=== PATIENT | male | born 1980 | race Hispanic/Latino ===

== ENCOUNTER 2016-12-02 18:09 | Inpatient (IN) | payer MEDICAID ==
[2016-12-02 19:10] LABS: BASO % 0.6 % (0.0-2.0); EOS # 0.3 K/uL (0.0-0.7); HEMATOCRIT 49.5 % (35.0-51.0); LYMPH # 1.8 K/uL (1.0-4.3); LYMPH % 25.4 % (20.0-40.0); MEAN CELL VOLUME 93.9 fL (80.0-94.0); MEAN CORPUSCULAR HEMOGLOBIN 31.6 pg (27.0-31.0); MEAN CORPUSCULAR HGB CONC 33.7 g/dL (33.0-37.0); MEAN PLATELET VOLUME 7.6 fL (7.2-11.7); MONO # 0.8 K/uL (0.0-0.8); WHITE BLOOD COUNT 6.9 K/uL (4.8-10.8)
[2016-12-02 19:19] LABS: RBC URINE < 1 /hpf (0-3); URINE BILIRUBIN NEGATIVE (NEGATIVE); URINE BLOOD NEGATIVE (NEGATIVE); URINE COLOR Yellow (YELLOW); URINE GLUCOSE (UA) NORMAL (Normal); URINE KETONE NEGATIVE (NEGATIVE); URINE LEUKOCYTE ESTERASE NEG Leu/uL (Negative); URINE PROTEIN NEGATIVE (NEGATIVE); WBC URINE 1 /hpf (0-5)
[2016-12-02 19:24] LABS: CHLORIDE 104 mmol/L (98-107); SODIUM 144 mmol/L (132-148)
[2016-12-02 19:25] LABS: POTASSIUM 3.7 mmol/L (3.6-5.2)
[2016-12-02 19:26] LABS: GFR AFRICAN-AMERICAN > 60
[2016-12-02 19:27] LABS: ALB/GLOB RATIO 1.5 (1.0-2.1); ALKALINE PHOSPHATASE 46 U/L (38-126); ALT/SGPT 115 U/L (21-72); AST/SGOT 100 U/L (17-59); BILIRUBIN,TOTAL 0.6 mg/dL (0.2-1.3); BLOOD UREA NITROGEN 7 mg/dL (9-20); CALCIUM 10.1 mg/dl (8.6-10.4); CARBON DIOXIDE 28 mmol/L (22-30); GLUCOSE,RANDOM 76 mg/dL (75-110); TOTAL PROTEIN 7.1 g/dL (6.3-8.3)
[2016-12-02 19:28] LABS: ALCOHOL SERUM 267 mg/dl (0-10)
--- NOTE | 2016-12-02 19:34 | C.PDOC ---
Time Seen by Provider: 12/02/16 19:31 Chief Complaint (Nursing): Substance Abuse Past Medical History Vital Signs: Last Vital Signs Temp 98.1 F 12/02/16 18:20 Pulse 60 12/02/16 18:20 Resp 18 12/02/16 18:20 BP 132/87 12/02/16 18:20 Pulse Ox 100 12/02/16 18:20 - Social History Hx Alcohol Use: Yes Hx Substance Use: No - Immunization History Hx Tetanus Toxoid Vaccination: Yes Hx Influenza Vaccination: No Hx Pneumococcal Vaccination: No ED Course And Treatment - Laboratory Results Result Diagrams: 12/02/16 19:06 12/02/16 19:06 O2 Sat by Pulse Oximetry: 100 Disposition Counseled Patient/Family Regarding: Studies Performed, Diagnosis - Disposition Disposition Time: 19:34 Forms: [employer] (Macedonian)
--- NOTE | 2016-12-02 19:36 | C.PDOC ---
History Of Present Illness Pt presents to the ED requesting detoxification. He reports last alcoholic drink was a couple hours ago. Patient currently offers no medical complaints. Time Seen by Provider: 12/02/16 19:31 Chief Complaint (Nursing): Substance Abuse History Per: Patient History/Exam Limitations: intoxication Onset/Duration Of Symptoms: Hrs Current Symptoms Are (Timing): Still Present Suicide/Self Injury Attempted (Context): None Modifying Factor(s): Alcohol Severity: Mild Pain Scale Rating Of: 3 Associated Symptoms: denies: Suicidal Thoughts, Suicidal Plan Involuntary Hold By: None Recent travel outside of the [place]: No Additional History Per: Patient Past Medical History Reviewed: Historical Data, Nursing Documentation, Vital Signs Vital Signs: Last Vital Signs Temp 98.1 F 12/02/16 18:20 Pulse 103 H 12/02/16 21:35 Resp 18 12/02/16 21:35 BP 137/89 12/02/16 21:35 Pulse Ox 100 12/02/16 23:25 - Medical History PMH: No Chronic Diseases Surgical History: No Surg Hx Family History: States: No Known Family Hx - Social History Hx Alcohol Use: Yes Hx Substance Use: No - Immunization History Hx Tetanus Toxoid Vaccination: Yes Hx Influenza Vaccination: No Hx Pneumococcal Vaccination: No Review Of Systems Constitutional: Negative for: Fever, Chills Cardiovascular: Negative for: Chest Pain Respiratory: Negative for: Shortness of Breath Gastrointestinal: Negative for: Nausea, Vomiting, Abdominal Pain Psych: Positive for: Other (EtOH intoxication) Physical Exam - Physical Exam Appears: Non-toxic, No Acute Distress, Other (visibly intoxicated) Skin: Warm, Dry, Other (3x piercings noted on right cheek) Head: Normacephalic Eye(s): bilateral: Normal Inspection, PERRL, EOMI Oral Mucosa: Moist, Other (alcohol on breath) Neck: Supple Chest: Symmetrical Cardiovascular: Rhythm Regular Respiratory: No Decreased Breath Sounds, No Accessory Muscle Use Gastrointestinal/Abdominal: Bowel Sounds, Soft, No Tenderness Back: No CVA Tenderness Extremity: No Deformity, No Swelling Extremity: Bilateral: Atraumatic Neurological/Psych: Oriented x3, Other (arousable to verbal stimuli) Gait: Unsteady ED Course And Treatment - Laboratory Results Result Diagrams: 12/02/16 19:06 12/02/16 19:06 O2 Sat by Pulse Oximetry: 100 (RA) Pulse Ox Interpretation: Normal ED OBSERVATION Date of observation admission: 12/02/16 Time of observation admission: 19:33 - Observation admission statement Patient is being placed in observation because:: Patient acutely intoxicated - Goals of Observation Goals of observation are:: Pending crisis evaluation - Progress Note Progress Note: 12/02/16 19:39 Pt in room, vitals stable. 12/02/16 21:28 Vitals stable. 12/02/16 23:25 Vitals stable. Disposition Discussed With Dr.: Staci Buitrago Comment: accepted the pt on his service and took over the care at 12:34 AM Doctor Will See Patient In The: Hospital - Disposition Disposition: HOSPITALIZED Disposition Time: 19:34 Condition: FAIR - POA Present On Arrival: None - Clinical Impression Clinical Impression: Drug abuse, Alcohol intoxication - Scribe Statement The provider has reviewed the documentation as recorded by the Vilma Lopez Provider Attestation: All medical record entries made by the Vilma were at my direction and personally dictated by me. I have reviewed the chart and agree that the record accurately reflects my personal performance of the history, physical exam, medical decision making, and the department course for this patient. I have also personally directed, reviewed, and agree with the discharge instructions and disposition. Decision To Admit - Pt Status Changed To: Hospital Disposition Of: Inpatient - Admit Certification Admit to Inpatient:: After my assessment, the patient will require hospitalization for at least two midnights. This is because of the severity of symptoms shown, intensity of services needed, and/or the medical risk in this patient being treated as an outpatient. - InPatient: Physician Admission Certification: I certify that this patient requires 2 or more midnights of care for the following reason:: After my assessment, the patient will require hospitalization for at least two midnights. This is because of the severity of symptoms shown, intensity of services needed, and/or the medical risk in this patient being treated as an outpatient. - . Bed Request Type: Detox Admitting Physician: Staci Buitrago Patient Diagnosis: Drug abuse, Alcohol intoxication
--- NOTE | 2016-12-03 01:22 | PCM.BM ---
<Kaitlin Langford M - Last Filed: 12/03/16 01:20> Treatment Plan Problems - Problems identified on initial assessmt Ineffective Coping Skills Date Initiated: 12/03/16 Time Initiated: 01:21 Assessment reference: NA Status: Active Treatment assets and liabiliti Patient Assests: ADL independent Patient Liabilities: substance abuse - Milieu Protocol Maintain good personal hygiene: daily Encourage regular showers, daily Remind patient to perform daily oral care, other Assist patient to perform ADL's Maintain personal safety: every shift Educate patient to report safety concerns to staff, every shift Monitor environment for contraband/sharps Medication safety: Monitor for expected outcome, potential side effects: every shift, Assess barriers to learning: every shift, Assess readiness for medication education: every shift <Abbe Vail - Last Filed: 12/04/16 10:46> - Diagnosis (1) Alcohol use disorder, severe, dependence Status: Acute Interventions: 12/04/16 10:46 * Assess 7x/week regarding severity of withdrawal * Educate regarding risks, benefits, side effects and alternatives of medications * Use Motivational Interviewing for abstinence * Use CBT for relapse prevention * Medication management for withdrawal symptoms * Encourage medication assisted treatment *
[2016-12-03] MEDS: Multiple Vitamins Tab PO SCH (10:58)
--- NOTE | 2016-12-03 15:13 | PCM.PSYCH ---
Initial Psychiatric Evaluation - Initial Psychiatric Evaluation Type of Admission: Voluntary Legal Status: Capacity Chief Complaint (in patient's own words): "I've had enough of drinking" History of Present Illness and Precipitating Events: Patient is a 36 year old male, single with a 9 year old child, who works in [employer], and lives alone in [place], [place]. Patient is here today because he states "I've had enough of drinking." Patient reports drinking up to 2 liters per day of liquor per day, in addition to some wine, for the past 4-5 years. His first time ever drinking was at age 16. Longest period of sobriety was for 2 years, but drinking was replaced with using drugs. Denies history of seizure or DTs. Patient reports occasionally sniffing cocaine, including recent use. He states that he used opioids for 2 years when he stopped drinking alcohol, but has been clean from opioids for 18 months. He denies use of PCP, LSD, mushrooms or other substances. He smokes cigarettes. Patient has a history of detox 1x in the past. He last went to rehab 2 years ago. He states that he has had naltrexone in the past. Patient has a past psychiatric history of anxiety, depression and bipolar. His periods of depression last for 2-3 days at a time. He states that he sometimes feel hyperactive. He has never been hospitalized for any psychiatric reason. He denies auditory/visual hallucinations, manic symptoms (high energy, elevated mood, goal directed behavior) or history of suicide attempts. Patient states that he used to cut himself "back in the day." He is currently on Welbutrin, Seroquel and Klonopin. He states that the Klonopin was prescribed to him by a "doctor at [facility]." Medical history: Hepatitis C otherwise denies Medications: Wellbutrin Seroquel Klonopin Family history: unsure Social history: Single 9 year old child Works in [employer] Lives alone in [place], [place] Currently on probation Current Medications: Active Medications Generic Name Dose Route Start Last Admin Trade Name Freq PRN Reason Stop Dose Admin Clonidine HCl 0.1 mg 12/03/16 01:32 12/03/16 12:47 Catapres PO 0.1 mg Q4H PRN Administration Symptoms of alcohol withdrawl Folic Acid 1 mg 12/03/16 10:00 12/03/16 10:58 Folic Acid PO 1 mg DAILY SHAGUFTA Administration Gabapentin 300 mg 12/03/16 14:00 12/03/16 13:07 Neurontin PO 300 mg TID SHAGUFTA Administration Hydroxyzine HCl 25 mg 12/03/16 01:39 12/03/16 02:12 Atarax PO 25 mg Q6H PRN Administration Agitation Ibuprofen 600 mg 12/03/16 11:21 Motrin Tab PO Q6H PRN Pain, moderate (4-7) Lorazepam 1 mg 12/03/16 11:19 12/03/16 12:47 Ativan PO 1 mg Q4H PRN Administration Anxiety Lorazepam 2 mg 12/03/16 11:30 12/03/16 11:43 Ativan PO 12/07/16 11:29 2 mg Q6H SHAGUFTA Administration Taper Multivitamins 1 tab 12/03/16 10:00 12/03/16 10:58 Hexavitamin PO 1 tab DAILY SHAGUFTA Administration Nicotine 1 patch 12/03/16 11:30 12/03/16 11:43 Nicoderm Cq TD 1 patch DAILY SHAGUFTA Administration Thiamine HCl 100 mg 12/03/16 10:00 12/03/16 10:58 Vitamin B1 Tab PO 100 mg DAILY SHAGUFTA Administration Trazodone HCl 50 mg 12/03/16 01:31 12/03/16 02:12 Desyrel PO 50 mg HS PRN Administration Insomnia Past Psychiatric History - Past Psychiatric History Pertinent Medical Hx (Current Medical&Sleep Prob, Allergies): Allergies Allergy/AdvReac Type Severity Reaction Status Date / Time No Known Allergies Allergy Verified 12/02/16 18:23 Clonazepam [Klonopin] 1 mg PO HS 12/02/16 QUEtiapine [SEROquel] 100 mg PO HS 12/02/16 buPROPion SR [Wellbutrin SR 150 MG] 150 mg PO BID 12/02/16 Review of Systems - Neurological Neurological: UNREMARKABLE - Psychiatric Psychiatric: Anxiety, Depression. absent: Auditory Hallucinations, Homicidal Ideation, Suicidal Ideation, Visual Hallucinations Mental Status Examination - Personal Presentation Personal Presentation: Looks stated age - Affect Affect: Constricted - Motor Activity Motor Activity: Calm - Reliability in Providing Information Reliability in Providing Information: Fair - Speech Speech: Organized - Mood Mood: Depressed, Anxious - Formal Thought Process Formal Thought Process: No Impairment - Cognitive Functions Orientation: Person, Place, Situation, Time Sensorium: Alert Attention/Concentration: Attentive Abstract Thinking: [place] Estimate of Intelligence: Average Judgement: Intact, as evidence by: Insight regarding need for hospitalization Memory: Recent intact, as evidence by: Ability to recall events of the day, Remote intact, as evidenced by: Abilit to recall sig. life events - Risk Risk: Withdrawal - Strength & Assets Inventory Strength & Assets Inventory: Employment status, Cooperative DSM 5 DX - DSM 5 DSM 5 Diagnosis: Alcohol use disorder, severe Alcohol withdrawal Cocaine use disorder Tobacco use disorder Anxiety disorder r/o major depressive disorder r/o bipolar disorder - Recommended/Plan of Treatment Treatment Recommendations and Plan of Treatment: Ativan detox As needed medications Gabapentin for augmentation Attend groups and activities Supportive therapy and psychoeduation [place] for abstinence CBT for relapse prevention Encourage MAT Refer to rehab or IOP Attend self-help groups as well Anxiety disorder -Continue medications -Support and psychoeducation daily -Attend groups and activities daily -After care planning by CECILLE Tobacco use disorder - Nicoderm 1 patch TD daily 33 minutes Projected ELOS: 4-5 days Prognosis: good with treatment Discharge Plan and Discharge Criteria: no withdrawal symptoms - Smoking Cessation Smoking Cessation Initiated: Yes
[2016-12-04] MEDS: Multiple Vitamins Tab PO SCH (09:35)
--- NOTE | 2016-12-04 11:20 | PCM.PYCHPN ---
Psychiatric Progress Note - Psychiatric Progress Note Patient seen today, length of contact: 15 min Patient Chief Complaint: I am feeling anxious.' Problems Identified/Issues Discussed: Patient seen and evaluated, chart reviewed and discussed with the nurse. Patient remained isolated, and withdrawn. Patient reports withdrawal symptoms including nausea, headaches, cramps and sweating. He reports anxiety and irritability however, he denies any suicidal ideation or any homicidal ideation or any AVH. He states that he was taking Seroquel and Wellbutrin before coming to the detox and he would like to resume these meds. Supportive therapy and psychoeducation were given. Medication Change: Yes (detox changes, start seroquel, start wellbutrin) Medical Record Reviewed: Yes Mental Status Examination - Cognitive Function Orientation: Person, Place, Situation, Time Memory: Intact Attention: WNL Concentration: Poor Association: WNL Fund of Knowledge: Poor - Mood Mood: Depressed, Anxious - Affect Affect: Constricted - Speech Speech: Soft - Formal Thought Process Formal Thought Process: No Impairment - Suicidal Ideation Suicidal Ideation: No - Homicidal Ideation Homicidal Ideation: No Goal/Treatment Plan - Goal/Treatment Plan Need for Continued Stay: Severe depression anxiety, Severe functional impairment Progress Toward Problem(s) and Goals/Treatment Plan: Alcohol use disorder, severe Alcohol withdrawal Cocaine use disorder Tobacco use disorder Anxiety disorder r/o major depressive disorder r/o bipolar disorder Ativan detox As needed medications Gabapentin for augmentation Attend groups and activities Supportive therapy and psychoeduation [place] for abstinence CBT for relapse prevention Encourage MAT Refer to rehab or IOP Attend self-help groups as well Anxiety disorder -Continue medications -Support and psychoeducation daily -Attend groups and activities daily -After care planning by CECILLE Tobacco use disorder - Nicoderm 1 patch TD daily Start Seroquel 100 mg PO QHS Start Wellbutrin 150 mg po Daily - Smoking Cessation Smoking Cessation Initiated: No
[2016-12-04] MEDS: Albuterol HFA 90 mcg/actuation (8 g) INH PRN ×2 (12:02→19:49)
[2016-12-04] MEDS: buPROPion SR 150 MG TABLET PO SCH ×2 (14:00→18:06)
[2016-12-05] MEDS: Multiple Vitamins Tab PO SCH (11:02)
[2016-12-05] MEDS: buPROPion SR 150 MG TABLET PO SCH ×2 (11:02→18:07)
[2016-12-05] MEDS: Albuterol HFA 90 mcg/actuation (8 g) INH PRN ×2 (11:02→16:00)
--- NOTE | 2016-12-05 11:45 | PCM.PYCHPN ---
Psychiatric Progress Note - Psychiatric Progress Note Patient seen today, length of contact: 15 min Patient Chief Complaint: I am feeling little better.' Problems Identified/Issues Discussed: Patient seen and evaluated, chart reviewed and discussed with the nurse. Patient reports some improvement in his anxiety since yesterday. He also reports some improvement in the withdrawal symptoms but still reports headaches , cramps and sweating. He denies any SI/HI or any AVH. He needs more time to stabilize. He is taking medication and denies any side effects. Supportive therapy and psychoeducation were given. Medication Change: Yes (detox changes,) Medical Record Reviewed: Yes Mental Status Examination - Cognitive Function Orientation: Person, Place, Situation, Time Memory: Intact Attention: WNL Concentration: Poor Association: WNL Fund of Knowledge: Poor - Mood Mood: Depressed, Anxious - Affect Affect: Constricted - Speech Speech: Soft - Formal Thought Process Formal Thought Process: No Impairment - Suicidal Ideation Suicidal Ideation: No - Homicidal Ideation Homicidal Ideation: No Goal/Treatment Plan - Goal/Treatment Plan Need for Continued Stay: Severe depression anxiety, Severe functional impairment Progress Toward Problem(s) and Goals/Treatment Plan: Alcohol use disorder, severe Alcohol withdrawal Cocaine use disorder Tobacco use disorder Anxiety disorder r/o major depressive disorder r/o bipolar disorder Ativan detox As needed medications Gabapentin for augmentation Attend groups and activities Supportive therapy and psychoeduation [place] for abstinence CBT for relapse prevention Encourage MAT Refer to rehab or IOP Attend self-help groups as well Anxiety disorder -Continue medications -Support and psychoeducation daily -Attend groups and activities daily -After care planning by CECILLE Tobacco use disorder - Nicoderm 1 patch TD daily Seroquel 100 mg PO QHS Wellbutrin 150 mg po Daily - Smoking Cessation Smoking Cessation Initiated: No
[2016-12-05 20:05] VITALS: RESP 18
[2016-12-06] MEDS: Albuterol HFA 90 mcg/actuation (8 g) INH PRN ×2 (08:05→17:23)
[2016-12-06] MEDS: buPROPion SR 150 MG TABLET PO SCH ×2 (09:41→17:19)
[2016-12-06] MEDS: Multiple Vitamins Tab PO SCH (09:41)
--- NOTE | 2016-12-06 13:49 | PCM.PYCHPN ---
Psychiatric Progress Note - Psychiatric Progress Note Patient seen today, length of contact: 15 min Patient Chief Complaint: "I'm not too bad" Problems Identified/Issues Discussed: The patient was seen, chart reviewed, case discussed with staff. The patient is compliant with medications and reports no side effects. Patient states that his weekend was okay, and he understands that he will be discharged tomorrow. He requests HIV testing because his last test was 4 years ago after he injured his knee. Symptoms are improving but patient needs more time to stabilize. 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 Support and psychoeducation given. Medication Change: Yes (detox changes daily ) Medical Record Reviewed: Yes Mental Status Examination - Cognitive Function Orientation: Person, Place, Situation, Time Memory: Intact Attention: WNL Concentration: Poor Association: WNL Fund of Knowledge: Poor - Mood Mood: Depressed, Anxious - Affect Affect: Constricted - Speech Speech: Soft - Formal Thought Process Formal Thought Process: No Impairment - Suicidal Ideation Suicidal Ideation: No - Homicidal Ideation Homicidal Ideation: No Goal/Treatment Plan - Goal/Treatment Plan Need for Continued Stay: Severe depression anxiety, Severe functional impairment Progress Toward Problem(s) and Goals/Treatment Plan: Ativan detox As needed medications Gabapentin for augmentation Attend groups and activities Supportive therapy and psychoeduation [place] for abstinence CBT for relapse prevention Encourage MAT Refer to rehab or IOP Attend self-help groups as well Anxiety disorder -Continue medications -Support and psychoeducation daily -Attend groups and activities daily -After care planning by CECILLE Tobacco use disorder - Nicoderm 1 patch TD daily
[2016-12-07 08:25] VITALS: BP 136/73; PULSE 83; TEMP 98.1; O2SAT 97
--- NOTE | 2016-12-07 08:35 | PCM.PYCHDC ---
Mental Status Examination - Mental Status Examination Orientation: Person, Place, Situation, Time Memory: Intact Mood: Neutral Affect: Constricted Speech: Appropriate Attention: WNL Concentration: WNL Association: WNL Fund of Knowledge: WNL Formal Thought Process: No Impairment Suicidal Ideation: No Current Homicidal Ideation?: No Discharge Summary - Discharge Note Reason for Hospitalization: Detox from alcohol Psychiatric History (includes Medical, Family, Personal Hx): Hx of alcohol use disorder, cocaine use, anxiety, depression, bipolar Laboratory Data: Abnormal Lab Results 12/06/16 11:19 HIV 1&2 Antibody Screen Negative Consultations:: List each consultation separately and include: 1. Reason for request. 2. Findings. 3. Follow-up Summary of Hospital Course include:: 1. Description of specific treatment plan utilized for patients during their course of treatmen. 2. Summarize the time- course for resolution of acute symptoms and/or regressed behaviors. 3. Describe issues identified and worked on during hospitalization. 4. Describe medication utilized. 5. Describe medical problems identified and treated. 6. Reassessment of suicide risk Summary of Hospital Course: The patient was admitted and started on treatment with psychotherapy, support, psychoeducation and medications. MO and CBT used. The patient attended groups and activities, as well as milieu therapy. All the risks and benefits of medications are discussed and the patient understood and agreed. The patient improved with the treatments provided. He expresses concern about talking in his sleep and was instructed to stop taking Trazadone. After care discussed with the patient. He went back to [facility] but will also consider MAT - Final Diagnosis (DSM 5) Condition upon Discharge: FAIR DSM 5: Alcohol use disorder, severe Alcohol withdrawal Cocaine use disorder Tobacco use disorder Anxiety disorder r/o major depressive disorder r/o bipolar disorder Disposition: HOME/ ROUTINE Follow-up Treatment Plan: Continue below medications after discharge. Trazadone discontinued due to side effects of talking in sleep. Follow after care plan as discussed. Use relapse prevention skills. Return to ED or call 911 if suicidal, homicidal or symptoms relapse. Stay away from stress, alcohol and drugs. See primary doctor once a year. Prescriptions/Medication Reconciliation: Albuterol HFA [Ventolin HFA 90 mcg/actuation (8 g)] 1 puff INH RQ4 PRN #1 inhaler PRN Reason: Shortness Of Breath buPROPion SR [Wellbutrin SR 150 MG] 150 mg PO BID #60 tab Gabapentin [Neurontin] 300 mg PO TID #90 cap QUEtiapine [SEROquel] 200 mg PO HS #30 tab - Smoking Cessation Smoking Cessation Medication prescribed: No - Antipsychotic Medications Pt discharged on 2 or more routine antipsychotic medications: No
[2016-12-07] MEDS: buPROPion SR 150 MG TABLET PO SCH (09:13)
[2016-12-07] MEDS: Multiple Vitamins Tab PO SCH (09:13)
[2016-12-07] MEDS: Albuterol HFA 90 mcg/actuation (8 g) INH PRN (09:15)
== END 2016-12-07 09:30 | disposition home or self-care (01) | DRG 750 ==
LOC: C.ER 18:09 → C.9OBSV 19:33 → C.7D 12-03 00:33 → OBSVTOIN 12-03 00:33
PROVIDERS: ADMIT Psychiatry & Neurology Psychiatry; ATTEND Psychiatry & Neurology Psychiatry
PROC: HZ2ZZZZ Detoxification Services for Substance Abuse Treatment (ICD-10-PCS; principal; 2016-12-03)
PROC: HZ42ZZZ Group Counseling for Substance Abuse Treatment, Cognitive-Behavioral (ICD-10-PCS; 2016-12-03)
PROC: HZ52ZZZ Individual Psychotherapy for Substance Abuse Treatment, Cognitive-Behavioral (ICD-10-PCS; 2016-12-03)
PROC: HZ59ZZZ Individual Psychotherapy for Substance Abuse Treatment, Supportive (ICD-10-PCS; 2016-12-03)
PROC: HZ56ZZZ Individual Psychotherapy for Substance Abuse Treatment, Psychoeducation (ICD-10-PCS; 2016-12-03)
PROC: HZ46ZZZ Group Counseling for Substance Abuse Treatment, Psychoeducation (ICD-10-PCS; 2016-12-03)
DX: F10.230 Alcohol dependence with withdrawal, uncomplicated (principal); B19.20 Unspecified viral hepatitis C without hepatic coma; F31.9 Bipolar disorder, unspecified; F14.10 Cocaine abuse, uncomplicated; F10.220 Alcohol dependence with intoxication, uncomplicated; Y90.8 Blood alcohol level of 240 mg/100 ml or more; F17.210 Nicotine dependence, cigarettes, uncomplicated; F41.9 Anxiety disorder, unspecified